=== PATIENT | male | born 1985 | race Two or more races ===

== ENCOUNTER 2017-08-19 01:31 | Emergency (ER) | payer BC ==
[~2017-08-19] VITALS: Ht 172.7 cm; Wt 88.5 kg
[2017-08-19 01:40] VITALS: Ht 172.7 cm; Wt 88.5 kg
[2017-08-19 04:10] VITALS: BP 128/82
== END 2017-08-19 04:10 | disposition home or self-care (01) ==
LOC: ED 01:31
DX: H61.23 Impacted cerumen, bilateral (principal); J32.9 Chronic sinusitis, unspecified